=== PATIENT | male | born 1980 | race Caucasian/White ===

== ENCOUNTER 2024-09-08 19:19 | Emergency (ER) | payer OTHER, SELFPAY ==
[2024-09-08 19:20] VITALS: BMI 34.3
[2024-09-08 19:27] VITALS: BP 108/71; PULSE 60; RESP 20; TEMP 37.1; O2SAT 95
--- NOTE | 2024-09-08 19:43 | PD.EDRME ---
Rapid Medical Screening Exam [facility] Arrival date/time: 09/08/24 19:19 Chief Complaint: Wound/Laceration Time Seen by Provider: 09/08/24 19:25 Vital signs: Vital Signs Temperature 98.7 F 09/08/24 19:27 Pulse Rate 60 09/08/24 19:27 Respiratory Rate 20 09/08/24 19:27 Blood Pressure 108/71 09/08/24 19:27 Pulse Oximetry (%) 95 09/08/24 19:27 Oxygen Delivery Method Room Air 09/08/24 19:27 [facility] Narrative: 44-year-old, [id number] male presents to the ED with a complaint of left fourth finger laceration that he sustained just prior to his arrival on a mandolin slicer while cutting cucumbers. His last tetanus is unknown.
--- NOTE | 2024-09-08 19:45 | XR_ITS ---
Examination: Hand, left 3 views Technique: Hand AP, oblique, lateral 3 views Date and time of exam: September 08, [id number] hrs. Indications: Laceration to the hand today with fourth digit pain. Findings: Soft tissue defect fourth digit No fracture No opaque foreign body Impression: No fracture No opaque foreign body
[2024-09-08] MEDS: DIPHTH,PERTUSS(ACELL),TET VAC 0.5 ML SYR- ADULT IMi (20:27)
--- NOTE | 2024-09-08 20:48 | EDNOTE_ITS ---
ED Wound/Laceration-RME/HPI General Chief Complaint: Wound/Laceration Stated Complaint: LAC ON LEFT RING FINGER Time Seen by Provider: 09/08/24 19:25 Arrival date/time: 09/08/24 19:19 44-year-old, [id number] male presents to the ED with a complaint of left fourth finger laceration that he sustained just prior to his arrival on a mandolin slicer while cutting cucumbers. His last tetanus is unknown. Mode of arrival: ambulatory Limitations: no limitations RME / HPI RME / HPI narrative: 44-year-old, [id number] male presents to the ED with a complaint of left fourth finger laceration that he sustained just prior to his arrival on a mandolin slicer while cutting cucumbers. His last tetanus is unknown. Onset (ago): minute(s) Extremity Location: Left: hand (4th Finger) Place: home Patient tetanus UTD: No Context: sharp object use (Mandolin slicer) Associated symptoms: pain Treatments prior to arrival: other (Pressure) Related Data Allergies Allergy/AdvReac Type Severity Reaction Status Date / Time penicillin G Allergy Unknown UNKNOWN Unverified 03/11/09 19:59 Review of Systems Review of Systems Systems Reviewed: All systems reviewed, normal except as documented ED Exam Narrative Physical exam: 44 year old male with left lateral 4th finger deep skin avulsion with no flap attachment remaining. No sensory or functional deficit. Patient initially appeared to be pale appearing. He was laid down and his color returned. Vitals stable. General Limitations: Present no limitations General appearance: Present alert and in no apparent distress Head Head exam: Present atraumatic and normal inspection Eye Eye exam: Present normal appearance; Absent scleral icterus or conjunctival injection Neck Neck exam: Present normal inspection Chest Chest inspection: Present normal inspection Respiratory Respiratory exam: Absent respiratory distress Cardiovascular Cardiovascular exam: Present regular rate and normal rhythm Abdominal Exam Abdominal exam: Absent distention Rectal Exam Rectal exam: Present deferred Extremities Exam Extremities exam: Present tenderness (Left distal 4th finger.) Expanded Upper Extremity Exam Hand exam: Present full ROM, tenderness, laceration and skin avulsion; Absent crepitus, nail avulsion or subungual hematoma Vascular exam: Normal capillary refill Back Exam Back exam: Present full ROM Neurological Exam Neurological exam: Present alert and oriented X3 Psychiatric Psychiatric exam: Present normal affect and normal mood Skin Skin exam: Present warm, dry, normal color and other (Laceration/skin avulsion left lateral 4th finger.) Course Course Course Narrative: 44-year-old, [id number] male presents to the ED with a complaint of left fourth finger laceration that he sustained just prior to his arrival on a mandolin slicer while cutting cucumbers. His last tetanus is unknown. 44 year old male with left lateral 4th finger deep skin avulsion with no flap attachment remaining. No sensory or functional deficit. Patient initially appeared to be pale appearing. He was laid down and his color returned. Vitals stable. There is obtained which were negative for tuft fracture. Tetanus was updated. Digital block with 4 cc lidocaine 1% given. Patient tolerated procedure well. Unable to repair skin avulsion/laceration due to no remaining flap. The wound was aggressively cleansed and irrigated. Surgicel was utilized for hemostasis. A bulky dressing and tube gauze applied. Patient tolerated procedure well Quality Measures none Orders Category Date Time Status TDap [Obtain Tdap Consent] X1 Care 09/08/24 19:45 Active XR hand comp LT min 3V Stat Exams 09/08/24 19:45 Completed TET,DIP/PERT AC (Adult)-Tdap [Boostrix Adult (Tdap) Med 09/08/24 19:45 Discontinued Vacc] 0.5 ml IMI .ONCE ONE Vital Signs Vital signs: Vital Signs Temperature 98.7 F 09/08/24 19:27 Pulse Rate 60 09/08/24 19:27 Respiratory Rate 20 09/08/24 19:27 Blood Pressure 108/71 09/08/24 19:27 Pulse Oximetry (%) 95 09/08/24 19:27 Oxygen Delivery Method Room Air 09/08/24 19:27 Procedures -ED Laceration Laceration 1: Site: hand (Left lateral fourth finger) Side (If applicable): left Size (cm): 1.5 Description: other (Skin avulsion with no flap.) Local Anesthetic: lidocaine 1% (Digital block) Amount of anesthesia used (mL): 4 Pre-repair: wound explored and irrigated extensively Skin layer closed with: other (Unable to close due to no flap.) Number of sutures: 0 Wound / Laceration Medications / Prescriptions Medication administrations:: Medication Administration History Discontinued Medications Diphtheria/Tetanus/Acell Pertussis (Diphth,Pertuss(Acell),Tet Vac 0.5 Ml Syr- Adult) 0.5 ml IMi .ONCE ONE Stop: 09/08/24 19:46 Last Admin: 09/08/24 20:27 Dose: 0.5 ml Documented By: KF Discharge Plan Plan Patient Disposition: HOME (Self Care) Disposition Comment: Stable and Improved Prescriptions/Referrals Referrals: Temporary Provider,ED [Primary Care Provider] - In 1 week Problem List Clinical Impression: Avulsion of skin Patient/Caregiver Discharge Instructions Education Materials: ED Skin Avulsion Additional Instructions: Keep the wound and dressing clean and dry. The dressing will need to be changed in 48 hours. Follow-up with your primary care physician in 24 to 48 hours. Return to the ED for any new or worsening symptoms. Print Language: Egyptian Stand Alone Forms: Ale Award Info., Patient Portal Info Letter Vaccines Vaccines Given During Stay: TDaP PA/PERSONAL CONSULTANT Supervising Physician PA/PERSONAL CONSULTANT Supervising Physician: Dr. Connelly
== END 2024-09-08 20:54 | disposition home or self-care (01) ==
PROVIDERS: Emergency Provider Emergency Medicine
DX: S61.215A Laceration without foreign body of left ring finger without damage to nail, initial encounter (principal); W26.8XXA Contact with other sharp object(s), not elsewhere classified, initial encounter; Y93.G1 Activity, food preparation and clean up; Z23 Encounter for immunization
CPT/HCPCS: 64450; 73130; 90715; 99283